=== PATIENT | male | born 1965 | race Caucasian/White ===

== ENCOUNTER 2016-07-13 06:50 | Inpatient (IN) | payer BC, OTHER ==
--- NOTE | 2016-06-22 19:09 | History and Physical ---
History & Physical Date Jun 22, 2016. Chief Complaint left knee pain History of Present Illness Mr Church is a 50 year old male who complains of left knee pain. He presents with pain and decreased rom on the left side. He states that the symptoms have been chronic non-traumatic. The symptoms occur constantly with intermittent worsening. The problem is worse. The pain is described as aching, shooting and discomforting. The symptoms occur continuously. He rates his best pain as 4/10. He rates his worst pain as 10/10. He rates his current pain as 5/10. The symptoms are aggravated by daily activities, movement, walking and work activities. John Paul states that the symptoms are relieved by no specific activity. In addition to left knee pain the patient is also experiencing decreased mobility, pain, pain after activity, night pain and joint pain. Prior NSAIDs include ibuprofen. Patient has had previous therapy. He attended physical therapy. Patient has had knee pain for years. [facility] He has been wearing a brace, taking ibuprofen, and attempted PT without relief. Past Medical/Surgical History Past Medical History 1. High Cholesterol 2. Low Back Pain MEDICATIONS 1. Simvastatin 10mg po daily 2. Ibuprofen 600mg po tid prn Past Surgical History 1. Left knee arthroscopy partial medial meniscectomy 1990s Additional History Hepatic Disease: No Endocrine Disorder: No Kidney Disease: No Hypertension: No Heart Disease: No Bleeding Tendencies: No Infectious Diseases: No Allergies Coded Allergies: No Known Allergies (Unverified , 06/22/16) Physical Examination Skin: warm/dry, no rash Eyes: normal inspection, EOMI, sclerae normal ENT: normal ENT inspection, pharynx normal Head: normocephalic, atraumatic Neck: supple, no adenopathy, trachea midline Respiratory/Chest: lungs clear, normal breath sounds, no respiratory distress Cardiovascular: regular rate, rhythm, no edema, no murmur Abdomen / GI: normal bowel sounds, non tender Addiitonal Comments: Left Knee Exam: Knee ROM L * Active ROM - Flexion: 125 degrees, Extension: 5 degrees, Factors: normal, Description: active pain free range of motion. Passive ROM - Flexion: 135 degrees, Extension: 0 degrees, Factors: normal, Description: passive pain free range of motion. Knee ROM R * Active ROM - Flexion: 135 degrees, Extension: 0 degrees, Factors: normal, Description: active pain free range of motion. Passive ROM - Flexion: 135 degrees, Extension: 0 degrees, Factors: normal, Description: passive pain free range of motion. Strength LE Normal Strength Description - Normal lower extremity: Bilateral. Knee * Inspection - Gait: antalgic. Alignment - Right: neutral, Left: neutral. Ecchymosis - Right: none, Left: negative. Effusion - Right: normal, Left: mild. Swelling - Right: none, Left: mild. Flexibility - Right: normal, Left: normal. Maximum tenderness - Right: non-tender, Left: medial joint line. Patella exam - Crepitation - Right: negative, Left: negative. Patella position - Right: neutral , Left: neutral. Tilt - Right: equal, Left: normal. [facility]'s - medial - Left: Positive. Knee Comments No calf tenderness Knee Normal Inspection - Atrophy - Right: Absent, Left: Absent. Skin - Right: Normal, Left: Normal. Patella exam - Apprehension - Right: Negative, Left: Negative. Q-angle - Right: Normal, Left: Normal. Rita's - Right: Negative, Left: Negative. [facility]'s - lateral - Right: Negative, Left: Negative. [facility]gen 's - medial - Right: Negative. Posterior drawer - Right: Negative, Left: Negative. Reverse pivot-shift - Right: Negative, Left: Negative. Sag sign - Right: Negative, Left: Negative. Anterior drawer - Right: Negative, Left: Negative. Valgus stress - Right: Negative, Left: Negative. Varus stress - Right : Negative, Left: Negative. Extensor lag - Right: Normal, Left: Normal. Neurovascular LE Normal Neurovascular examination including reflexes, sensation , and pulses is within normal limits. Diagnosis Left Knee DJD Xrays reviewed of the left knee showing findings consistent with degenerative joint disease including joint space narrowing, subchondral sclerosis and peripheral osteophyte formation. no acute bony pathology, overall varus alignment. Impression: degenerative joint disease of the left knee with no acute bony pathology noted. Further care discussed with patient and at this point in time has failed conservative measures and would like to proceed with a left total knee replacement. Plan on discharge will be home with home health physical therapy. DVT prophalaxis with TEDs, SCDs and will also place on aspirin 81 mg p.o. b.i.d. for a month postop. Patient will have follow up appointment in our office two weeks post op for staple/suture removal and re-evaluation. Patient otherwise has no other questions or concerns.
[2016-06-24 10:21] VITALS: BMI 36.0
--- NOTE | 2016-06-24 10:47 | PAT Medication Instructions ---
Service Date Jun 24, 2016. Current Home Medication List Acetaminophen (Tylenol), 1,000 MG PO TID PRN for Pain Ibuprofen (Advil), 200-600 MG PO Q4H PRN for Pain Simvastatin (Zocor), 10 MG PO QPM Medication Instructions For Your Scheduled Surgery - Check with surgeon for instructions: Ibuprofen (Advil), 200-600 MG PO Q4H PRN for Pain - Take the following medications the morning of surgery with a sip of water: Acetaminophen (Tylenol), 1,000 MG PO TID PRN for Pain - Take the following medications as scheduled the night before surgery: Simvastatin (Zocor), 10 MG PO QPM Acetaminophen (Tylenol), 1,000 MG PO TID PRN for Pain If you have any questions please call us at [phone] (Sarahy Michael PA-C ) or [phone] or [phone]
--- NOTE | 2016-06-24 11:18 | DIAGNOSTIC IMAGING REPORT ---
CHEST PREADMISSION(PA/LAT) CLINICAL HISTORY: Preoperative chest COMPARISON STUDY: No previous studies for comparison. FINDINGS: The cardiac and mediastinal contours are normal. There is no evidence of focal pulmonary consolidation. There is no evidence of failure. No pleural effusions are visualized.[ IMPRESSION: No active disease in the chest. Electronically signed by: Omer Gaitan M.D. 06/24/2016 11:16 AM Dictated Date/Time: 06/24/2016 11:16 AM
[2016-06-24 11:44] LABS: BASO ABS # 0.08 K/uL (0-0.2); COMPLETE YES; EOS % 2.5 %; HEMATOCRIT 47.9 % (42-52); IG% 0.2 %; LYMPH % 25.2 %; LYMPH ABS # 2.04 K/uL (1.2-3.4); MEAN CELL VOLUME 88.2 fL (80-100); MEAN CORPUSCULAR HEMOGLOBIN 30.2 pg (25-34); MEAN CORPUSCULAR HGB CONC 34.2 g/dl (32-36); MONO % 6.7 %; NEUT % 64.4 %; PLATELET COUNT 252 K/uL (130-400); RED BLOOD COUNT 5.43 M/uL (4.7-6.1); WHITE BLOOD COUNT 8.09 K/uL (4.8-10.8)
[2016-06-24 11:50] LABS: URINE APPEARANCE CLEAR (CLEAR); URINE BILIRUBIN NEG (NEG); URINE COLOR YELLOW; URINE NITRITE NEG (NEG); URINE SPECIFIC GRAVITY 1.007 (1.000-1.030); UROBILINOGEN NEG (NEG)
[2016-06-24 11:56] LABS: PARTIAL THROMBOPLASTIN RATIO 1.1; PROTHROMBIN TIME (PATIENT) 10.9 SECONDS (9.0-12.0)
[2016-06-24 12:01] LABS: MANUAL MICROSCOPIC REQUIRED? NO; REVIEW REQ? NO
[2016-06-24 12:32] LABS: ESTIMATED AVERAGE GLUCOSE 120 mg/dl; HA1C FLAG Normal (Normal)
[2016-06-24 12:34] LABS: BUN/CREATININE RATIO 16.4 (10-20); CALCIUM 9.2 mg/dl (8.5-10.1); CREATININE 0.94 mg/dl (0.60-1.40); POTASSIUM 4.1 mmol/L (3.5-5.1)
[~2016-07-13] VITALS: Ht 172.7 cm; Wt 106.6 kg
[2016-07-13] VITALS (7 sets, daily range): BP systolic 110–150; BP diastolic 73–98; PULSE 81–100; TEMP 36.5–37; O2SAT 93–97; Ht 172.7 cm; Wt 106.6 kg
[2016-07-13] MEDS: TRANEXAMIC ACID INJ 1,000 MG in SODIUM CHLORIDE 0.9% 100ML 100 ML IV SCH ×2 (06:30→09:21)
[~2016-07-13 06:50] MED LIST: ACET-1256 PO; ACETAMINOPHEN 500 MG TAB PO SCH; BUPIVACAINE 0.5 % 5 MG/1 ML PF 10ML VIAL ONE; CEFAZOLIN 3000 MG/65 ML D5W 65 ML IV SCH; CeleBREX 200 MG CAP PO SCH; DEXAMETHASONE 4 MG TAB PO SCH; GABAPENTIN 300 MG CAP PO SCH; IBUP-1277 PO; LACTATED RINGER'S 1000ML 1,000 ML IV SCH; LACTATED RINGER'S 1000ML IV SCH; LACTATED RINGER'S 500 ML IV SCH; METOCLOPRAMIDE HCL 10 MG TAB PO SCH; ROPIVACAINE 5MG/ML 30 ML 150 MG, BUPIVACAINE/EPINEPHR 0.5% MPF 30 ML, KETOROLAC TROMETH... INFIL SCH; SIMV10TA2 PO
--- NOTE | 2016-07-13 07:01 | History & Physical Bridge Note ---
H&P Re-Evaluation Bridge Note: I have examined the patient, reviewed the History & Physical and in the interval since the performance of the History & Physical I have noted the following changes of clinical significance: No changes noted
[2016-07-13] MEDS ORDERED: MIDAZOLAM HCL 1 MG/ML 2ML VIAL ONE (08:38)
[2016-07-13] MEDS ORDERED: BACITRACIN 50000 UNIT VIAL ONE (09:19)
[2016-07-13] MEDS ORDERED: ORTHO JOINT ANESTHETIC ONE (09:19)
[2016-07-13] MEDS ORDERED: POVIDONE-IODINE OP SOLN 30 ML BTL ONE (09:19)
[2016-07-13] MEDS ORDERED: FENTANYL CITRATE INJ 50 MCG/1 ML 2 ML VIAL ONE (09:42)
[2016-07-13] MEDS ORDERED: ONDANSETRON INJ 2 MG/ML 2 ML VIAL IV PRN ×2 (10:15→11:30)
[2016-07-13] MEDS ORDERED: FENTANYL CITRATE INJ 50 MCG/1 ML 2 ML VIAL IV PRN (10:15)
[2016-07-13] MEDS ORDERED: ATROPINE SULFATE 0.1 MG/ML 5ML SYR IV PRN (10:15)
[2016-07-13] MEDS ORDERED: EpHEDrine SULFATE INJ 50 MG/ML AMP IV PRN (10:15)
[2016-07-13] MEDS ORDERED: HYDROmorphone INJ 0.5 MG/0.5 ML SYR IV PRN (10:15)
[2016-07-13] MEDS ORDERED: PHENYLEPHRINE 100MCG/ML 5ML SYR ONE (10:40)
[2016-07-13] MEDS ORDERED: PROPOFOL IV EMULSION 10 MG/ML 20 ML VIAL IV ONE (10:40)
--- NOTE | 2016-07-13 10:44 | [facility] Post Operative Brief Note ---
Immediate Operative Summary Operative Date July 13, 2016. Pre-Operative Diagnosis Left knee degenerative joint disease Post-Operative Diagnosis Left knee degenerative joint disease Procedure(s) Performed Left Total Knee Arthroplasty Surgeon Dr. Martell Vaz Hospice Chaplain Surgeon(s) Rajesh Lundy PA-C Estimated Blood Loss 5mL Findings severe djd lt knee Specimens Specimen A.Left knee bone and tissue Complication(s) None Disposition Recovery Room / PACU
[2016-07-13] MEDS ORDERED: DEXAMETHASONE SOD INJ 4 MG/ML VIAL ONE (10:52)
[2016-07-13] MEDS ORDERED: ONDANSETRON INJ 2 MG/ML 2 ML VIAL ONE (10:52)
--- NOTE | 2016-07-13 10:57 | OPERATIVE REPORT ---
DATE OF OPERATION: 07/13/2016 PREOPERATIVE DIAGNOSIS: Severe end-stage degenerative joint disease, left knee. POSTOPERATIVE DIAGNOSIS: Severe end-stage degenerative joint disease, left knee. PROCEDURE: Left total knee arthroplasty utilizing Javier \T\ Nephew Journey II patient matched total knee arthroplasty size 6 femur, 6 tibia, 10 poly, 32 oval patella. SURGEON: Dr. Vaz. INFANT AND TODDLER TEACHER: Rajesh Lundy, who was necessary for prepping, draping, retraction, wound closure of deep fascia, subQ and skin and was necessary for the case. COMPLICATIONS: None. ESTIMATED BLOOD LOSS: 5 mL. TOURNIQUET TIME: 45 minutes. HISTORY OF PRESENT ILLNESS: The patient presents as a very pleasant 50-year-old white male being seen and evaluated with complaints of ongoing pain attributable to his left knee. He has failed attempts at conservative management including physical therapy, anti-inflammatories, relative rest, activity modification and presents for total knee arthroplasty after failing the above conservative management. After thorough discussion regarding treatment options, the patient has elected to proceed forward with total knee arthroplasty understanding the risks and complications. OPERATION AND FINDINGS: PROCEDURE: The patient was properly prepped and draped in supine position for total knee arthroplasty after identifying the appropriate surgical site. An anterior midline incision was made through the subcutaneous tissues down to the region of the extensor mechanism. A medial parapatellar incision was subsequently made. Meticulous hemostasis was obtained and performed at all times. The patella having been subluxed lateralward, medial and lateral meniscal remnants were excised. The patellar cut was then initially made and was sized to the appropriate size. After subluxing the tibia forward the appropriate meniscal fragments having been removed the distal femur was then cut first utilizing a Javier and Nephew block. The distal femoral cuts and chamfer cuts were all made under direct visualization and the proximal tibial osteotomy cut was also made utilizing Javier and Nephew blocks and checked with an extramedullary guide. The appropriate trial components on the femur and tibia were placed. Appropriate trial spacers were used to check flexion and extension gaps. With flexion and extension gaps being equal, the components were then subsequently after thorough irrigation and debridement lavage components were then subsequently cemented in the following order: femur, tibia and patella. Exparel was used for intraoperative anesthesia, the medial parapatellar incision was closed utilizing #1 Vicryl, subQ was closed with 2-0 Vicryl, skin was closed with skin clips. A sterile compression dressing was placed. The patient was taken to recovery room in stable condition. Due to the complex nature of the procedure, the entire surgery was performed with the operational assistance of Rajesh Lundy PA-C. The assistant winemaker, under direct supervision, was involved in the actual performance of all aspects of the surgical procedure including hemostasis, tissue retraction and incision, instrument management, patient positioning, and wound closure. I attest to the content of the Intraoperative Record and any orders documented therein. Any exceptio ns are noted below.
[2016-07-13] MEDS ORDERED: SOD PHOSPHATE/SOD BIPHOSPHATE ENEMA 132 ML BTL PR PRN (11:30)
[2016-07-13] MEDS ORDERED: MAGNESIUM HYDROXIDE SUSP 30 ML UDC PO PRN (11:30)
[2016-07-13] MEDS ORDERED: ZOLPIDEM TARTRATE 5 MG TAB PO PRN (11:30)
[2016-07-13] MEDS ORDERED: ALUMINUM/MAGNESIUM/SIMETH (MAALOX MAX) 30 ML UDC PO PRN (11:30)
[2016-07-13] MEDS ORDERED: BISACODYL 10 MG SUPP PR PRN (11:30)
[2016-07-13] MEDS ORDERED: METOCLOPRAMIDE HCL INJ 5 MG/ML 2 ML VIAL IV PRN (11:30)
--- NOTE | 2016-07-13 12:03 | DIAGNOSTIC IMAGING REPORT ---
LEFT KNEE 1 OR 2 VIEWS ROUTINE CLINICAL HISTORY: AP/LATERAL IN PACU LEFT KNEE joint replacement COMPARISON: None. DISCUSSION: Anatomic alignment status post total left knee arthroplasty. Good contact between prosthetic and underlying bone. Surgical drains are in position. Expected soft tissue postoperative change. IMPRESSION: Anatomic alignment status post total left knee replacement Electronically signed by: Rajesh Mac M.D. 07/13/2016 12:02 PM Dictated Date/Time: 07/13/2016 12:01 PM
--- NOTE | 2016-07-13 12:29 | Anesthesiology Progress Note ---
Anesthesia Post Op Note Date & Time July 13, 2016 at 12:29 Vital Signs Pain Intensity: 0 Vital Signs Past 12 Hours Date Time Temp Pulse Resp B/P Pulse Ox O2 Delivery O2 Flow Rate FiO2 07/13/16 11:28 36.3 85 18 89/72 96 Mask 10 07/13/16 07:38 36.5 81 16 150/98 97 Room Air Notes Mental Status: alert / awake / arousable, participated in evaluation Pt Amnestic to Procedure: Yes Nausea / Vomiting: adequately controlled Pain: adequately controlled Airway Patency, RR, SpO2: stable & adequate BP & HR: stable & adequate Hydration State: stable & adequate Neuraxial Anesthesia: was administered, sensory block is resolving Anesthetic Complications: no major complications apparent
[2016-07-13] MEDS ORDERED: MoRPHine SULFATE 4 MG/ML 1 ML CARP\\VIAL IV PRN (14:00)
[2016-07-13] MEDS ORDERED: MoRPHine SULFATE 10 MG/ML CARP/VIAL IV PRN (14:00)
[2016-07-13] MEDS: D5W AND 1/2NSS + 20MEQ KCL 1,000 ML IV SCH (14:21)
[2016-07-13] MEDS: ACETAMINOPHEN 500 MG TAB PO SCH ×2 (14:22→22:28)
[2016-07-13] MEDS: KETOROLAC TROMETHAMINE 30 MG/ML VIAL IV. SCH ×2 (15:39→22:27)
[2016-07-13] MEDS: OXYCODONE HCL IR 5 MG TAB (IMMEDIATE RELEASE) PO PRN (17:05)
[2016-07-13] MEDS: MoRPHine SULFATE 2 MG/ML CARP IV PRN ×2 (19:09→19:48)
[2016-07-13] MEDS: CEFAZOLIN IV 2,000 MG in DEXTROSE 5% 50ML 50 ML IV SCH (20:51)
[2016-07-13] MEDS: SENNA 8.6 MG TAB PO SCH (20:51)
[2016-07-13] MEDS: DOCUSATE SODIUM 100 MG CAP PO SCH (20:51)
[2016-07-13] MEDS: ASPIRIN 81 MG ECTAB PO SCH (20:51)
[2016-07-13] MEDS: SIMVASTATIN 10 MG TAB PO SCH (20:51)
[2016-07-13] MEDS: OXYCODONE HCL 10 MG TABCR (OXYCONTIN) PO SCH (20:51)
[2016-07-14] VITALS (9 sets, daily range): BP systolic 109–147; BP diastolic 71–92; PULSE 75–91; TEMP 36.4–36.9; O2SAT 93–97
[2016-07-14] MEDS: D5W AND 1/2NSS + 20MEQ KCL 1,000 ML IV SCH ×2 (00:48→10:05)
[2016-07-14] MEDS: CEFAZOLIN IV 2,000 MG in DEXTROSE 5% 50ML 50 ML IV SCH (04:06)
[2016-07-14] MEDS: KETOROLAC TROMETHAMINE 30 MG/ML VIAL IV. SCH ×2 (04:06→10:05)
[2016-07-14] MEDS: ACETAMINOPHEN 500 MG TAB PO SCH ×3 (06:11→22:01)
[2016-07-14 07:00] LABS: HEMATOCRIT 41.8 % (42-52); MEAN CELL VOLUME 87.3 fL (80-100); MEAN CORPUSCULAR HEMOGLOBIN 29.6 pg (25-34); MEAN PLATELET VOLUME 10.2 fL (7.4-10.4); PLATELET COUNT 285 K/uL (130-400); RED BLOOD COUNT 4.79 M/uL (4.7-6.1); WHITE BLOOD COUNT 17.99 K/uL (4.8-10.8)
[2016-07-14 07:36] LABS: BUN/CREATININE RATIO 19.7 (10-20); CALCIUM 8.8 mg/dl (8.5-10.1); CREATININE 0.99 mg/dl (0.60-1.40); POTASSIUM 4.3 mmol/L (3.5-5.1)
[2016-07-14] MEDS: OXYCODONE HCL IR 5 MG TAB (IMMEDIATE RELEASE) PO PRN ×3 (07:43→20:12)
--- NOTE | 2016-07-14 08:22 | Anesthesiology Progress Note ---
Anesthesia Post Op Note Date & Time July 14, 2016 at 08:23 Vital Signs Pain Intensity: 7.0 Vital Signs Past 12 Hours Date Time Temp Pulse Resp B/P Pulse Ox O2 Delivery O2 Flow Rate FiO2 07/14/16 07:20 36.9 91 18 143/85 96 Room Air 07/14/16 03:06 36.4 80 16 116/75 94 Room Air 07/14/16 00:54 Room Air 07/14/16 00:06 36.4 80 18 109/71 96 Room Air Notes Mental Status: alert / awake / arousable, participated in evaluation Pt Amnestic to Procedure: Yes Nausea / Vomiting: adequately controlled Pain: adequately controlled Airway Patency, RR, SpO2: stable & adequate BP & HR: stable & adequate Hydration State: stable & adequate Neuraxial Anesthesia: sensory block resolved Anesthetic Complications: no major complications apparent
--- NOTE | 2016-07-14 08:55 | Orthopedic Progress Note ---
Orthopedic Progress Note Date of Service July 14, 2016. Subjective Reports: complaints (pain in the knee this AM), feeling well, light headedness, Denies: SOB, calf pain, chest pain, nausea / vomiting Additional Notes: Pt just returned from the [place]. States he's having moderate pain this AM (just received pain meds). Some difficulty in doing SLR. Mild LH when first up but was better with time. No other complaints. Objective calves soft nontender, N/V intact, dressing C/D/I, A&O x3, toes mobile, hemovac drainage (250ml latest shift; ) Firing quad muscles. Good DF/PF of foot. Date Time Temp Pulse Resp B/P Pulse Ox O2 Delivery O2 Flow Rate FiO2 07/14/16 07:20 36.9 91 18 143/85 96 Room Air 07/14/16 03:06 36.4 80 16 116/75 94 Room Air 07/14/16 00:54 Room Air 07/14/16 00:06 36.4 80 18 109/71 96 Room Air 07/13/16 19:47 36.9 100 16 114/73 96 Room Air 07/13/16 16:26 37.0 88 17 112/73 95 Room Air 07/13/16 15:26 37.0 91 17 118/76 97 Room Air 07/13/16 14:20 36.6 98 18 110/76 93 Room Air 07/13/16 13:47 36.6 92 17 113/74 95 Nasal Cannula 2.0 07/13/16 13:20 36.9 91 18 125/84 94 Nasal Cannula 3.0 07/13/16 13:20 94 Nasal Cannula 3.0 07/13/16 13:20 94 Nasal Cannula 3.0 07/13/16 13:05 114/67 07/13/16 13:03 88 14 07/13/16 13:03 89 14 95 07/13/16 13:00 107/72 07/13/16 12:58 87 20 07/13/16 12:58 86 20 96 07/13/16 12:55 92/67 07/13/16 12:53 88 19 07/13/16 12:53 89 19 92 07/13/16 12:50 96/69 07/13/16 12:48 87 15 94 07/13/16 12:48 87 15 07/13/16 12:45 100/68 07/13/16 12:43 87 18 07/13/16 12:43 87 18 94 07/13/16 12:40 109/76 07/13/16 12:38 87 16 07/13/16 12:38 87 16 95 07/13/16 12:35 105/73 07/13/16 12:33 89 18 07/13/16 12:33 88 18 92 07/13/16 12:30 108/65 07/13/16 12:28 86 20 07/13/16 12:28 86 20 94 07/13/16 12:25 114/74 07/13/16 12:23 85 15 91 07/13/16 12:23 85 15 07/13/16 12:20 118/82 07/13/16 12:18 87 14 07/13/16 12:18 87 14 92 07/13/16 12:15 120/78 07/13/16 12:13 86 12 07/13/16 12:13 85 12 94 07/13/16 12:10 124/82 07/13/16 12:08 88 16 94 07/13/16 12:08 88 16 07/13/16 12:05 127/84 07/13/16 12:03 88 20 07/13/16 12:03 88 20 93 07/13/16 12:00 135/92 07/13/16 11:58 87 15 07/13/16 11:58 88 15 93 07/13/16 11:55 121/82 07/13/16 11:53 85 16 07/13/16 11:53 85 16 96 07/13/16 11:50 104/73 07/13/16 11:48 84 15 07/13/16 11:48 84 15 96 07/13/16 11:45 106/79 07/13/16 11:43 84 19 07/13/16 11:43 85 19 95 07/13/16 11:40 121/82 07/13/16 11:38 84 15 96 07/13/16 11:38 84 15 07/13/16 11:35 124/79 07/13/16 11:33 86 17 07/13/16 11:33 86 17 97 07/13/16 11:32 125/78 5/9/17 11:30 96/76 07/13/16 11:29 89/72 07/13/16 11:28 87 15 07/13/16 11:28 90 15 96 07/13/16 11:28 36.3 85 18 89/72 96 Mask 10 Laboratory Results 24 Hours: Test 07/14/16 06:45 Hematocrit 41.8 % Hemoglobin 14.2 g/dL Prothromb Time International Ratio 1.0 Prothrombin Time 11.0 SECONDS Assessment & Plan Assessment: POD 1 s/p Left TKA Plan: PT/OT Quad weakness due to surgery and discussed with patient. Inhouse Planning Pain Management: Celebrex, Toradol, Oxycontin, Morphine, PO Tylenol, Oxy IR DVT Prophylaxis: TEDs, SCDs, ASA Discharge Planning Discharge Planning: home with oppt Pain Management: Celebrex, Oxycontin, PO Tylenol, Oxy IR DVT Prophylaxis: TEDs, ASA Therapy: Physical Therapy
[2016-07-14] MEDS: DOCUSATE SODIUM 100 MG CAP PO SCH ×2 (09:00→20:30)
[2016-07-14] MEDS: PANTOprazole SOD 40 MG TAB PO SCH (09:02)
[2016-07-14] MEDS: MULTIVITAMIN TAB PO SCH (09:02)
[2016-07-14] MEDS: ASPIRIN 81 MG ECTAB PO SCH ×2 (09:02→20:30)
[2016-07-14] MEDS: OXYCODONE HCL 10 MG TABCR (OXYCONTIN) PO SCH ×2 (09:04→20:31)
[2016-07-14] MEDS ORDERED: NURSING DECISION MEDICATION ORDER SCH (14:15)
[2016-07-14] MEDS: NICOTINE 21 MG/24 HR TDSY TD SCH (15:56)
--- NOTE | 2016-07-14 17:29 | Discharge Instructions ---
Discharge Instructions Date of Service July 14, 2016. Admission Reason for Admission: Left Knee Osteoarthritis Discharge Discharge Diagnosis / Problem: Left Total Knee Replacement Discharge Goals Goal(s): Decrease discomfort, Improve function, Increase independence Activity Recommendations Activity Limitations: as noted below Weightbearing Status: Left weightbearing (as tolerated) . Instructions / Follow-Up Instructions / Follow-Up ACTIVITY RECOMMENDATIONS: SELF CARE INSTRUCTIONS AFTER TOTAL KNEE REPLACEMENT A. You may need to continue a physical therapy program after discharge from the hospital. There are several options available to you. Your doctor will assist you in selecting the best one for you. 1. An out-patient facility 2 to 3 times a week for therapy or home therapy. 2. Continue working on all exercises taught to you in the hospital. Your goals should be to increase bending of your knee to 90 degrees and beyond and to fully straighten your knee. B. You may progress at your own pace from walking with a walker or crutches to a cane; then to no assistive devices. C. Make walking a part of your daily routine. Be up as much as comfortable with rest periods throughout the day. Rest with leg elevation is very important. Use the ice wrap frequently for the first 3-4 weeks. D. There are no restrictions on activities. You may ride in a car, shop, participate in news photographer and all social activities. E. Wear the long elastic stockings (DINORAH hose) 20 hours a day for 2 weeks after surgery. They can be removed several times a day for laundering and for a bath. F. You may shower, no tub baths until cleared by your doctor. SPECIAL CARE INSTRUCTIONS: VERY IMPORTANT TO READ AND REVIEW A. There are a few signs you need to watch for after you are home. Call [facility] [place] if you notice any of the followin. Increased severe knee pain. Some pain is expected especially when you exercise. 2. Increased swelling in your leg or knee; pain or swelling of the calf muscle in either lower leg. 3. Any fluid drainage from the incision. 4. Shortness of breath or chest pain. B. Please call [facility] at if you have any concerns or questions about your operation or recovery. The doctor or his nurse will return your call promptly. C. You must take antibiotics before dental work, bladder, bowel or other surgery. Your doctor will provide you with a permanent care to carry describing this precaution. IMPORTANT: * REMEMBER TO TAKE ASPIRIN, 81 MG, TWICE DAILY FOR 4 WEEKS UNLESS OTHERWISE DIRECTED. THIS IS YOUR BLOOD THINNER. * HIGH RISK PATIENTS MAY BE PRESCRIBED A STRONGER BLOOD THINNER. THIS WILL BE PROVIDED AT DISCHARGE. * CALL IF INCREASED PAIN, REDNESS, DRAINAGE OR FEVER GREATER THAT 101. * WEAR DINORAH HOSE 20 HOURS PER DAY FOR 2 WEEKS. * DERMABOND Prineo- This is a mesh tape dressing that is covered with glue. It should remain in place until the incision is properly healed, usually 10-14 days. This dressing is designed to naturally slough off. You may trim the excess mesh tape as it peels off. Incision may be briefly wet in a shower. Dry immediately by blotting with a clean, dry towel. Do not bath or swim until instructed by your doctor. Do not scratch, rub, or pick at the dressing. Do not apply any topical ointments or lotions until dressing is completely removed and/or instructed by your doctor. There may be a small piece of suture material at one end of your incision. Do not pull or trim this. If it is bothersome or catching on clothing, you may cover it with a band-aid. FOLLOW UP VISIT: If appointment is not already scheduled: Please call [facility] [place] to make a follow-up appointment for 2 weeks after your surgery at . Current Hospital Diet Patient's current hospital diet: Regular Diet Discharge Diet Recommended Diet: Regular Diet Procedures Procedures Performed: Left Total Knee Arthroplasty Pending Studies Studies pending at discharge: no Laboratory Results Hemoglobin A1c Test 06/24/16 11:01 Range/Units Estimated Average Glucose 120 mg/dl Hemoglobin A1c 5.8 H 4.5-5.6 % Medical Emergencies . Who to Call and When: Medical Emergencies: If at any time you feel your situation is an emergency, please call 911 immediately. . Non-Emergent Contact Non-Emergency issues call your: Primary Care Provider, Surgeon . "Provider Documentation" section prepared by Rajesh Lundy. . VTE Core Measure Inpt VTE Proph given/why not?: Other Anticoagulation (ASA 81mg po bid x 1 month ), T.E.D. Stockings, SCD's [place] Drug Monitoring Program Search Results: patient reviewed within database, no issues identified
[2016-07-14] MEDS: SENNA 8.6 MG TAB PO SCH (20:30)
[2016-07-14] MEDS: CeleBREX 200 MG CAP PO SCH (20:31)
[2016-07-14] MEDS: SIMVASTATIN 10 MG TAB PO SCH (20:31)
[2016-07-15] MEDS: ACETAMINOPHEN 500 MG TAB PO SCH (06:13)
[2016-07-15] MEDS: OXYCODONE HCL IR 5 MG TAB (IMMEDIATE RELEASE) PO PRN ×2 (06:14→10:22)
--- NOTE | 2016-07-15 07:26 | Orthopedic Progress Note ---
Orthopedic Progress Note Date of Service July 15, 2016. Subjective Post OP Day: 2 Reports: feeling well, pain controlled w PO medications, Denies: SOB, calf pain , chest pain, complaints, light headedness, nausea / vomiting Objective calves soft nontender, N/V intact, capillary refill less than 2 sec., incision C /D/I, A&O x3, toes mobile Date Time Temp Pulse Resp B/P Pulse Ox O2 Delivery O2 Flow Rate FiO2 07/15/16 00:05 Room Air 07/14/16 22:50 36.4 75 16 109/75 93 Room Air 07/14/16 19:43 36.8 85 16 129/86 97 Room Air 07/14/16 16:13 36.8 87 18 147/92 96 Room Air 07/14/16 15:15 96 Room Air 07/14/16 12:40 36.4 79 18 138/87 07/14/16 07:30 Room Air Assessment & Plan Assessment: POD 2 s/p Left TKA Plan: PT/OT DVT proph with steve/scd/asa plan for d/c home later today after PT Discharge Planning Discharge Planning: home with oppt Pain Management: Celebrex, Oxycontin, PO Tylenol, Oxy IR DVT Prophylaxis: TEDs, ASA Therapy: Physical Therapy
[2016-07-15 07:28] VITALS: BP 126/85; PULSE 80; TEMP 36.5; O2SAT 96
[2016-07-15] MEDS ORDERED: RXC5 PO (07:29)
[2016-07-15] MEDS ORDERED: ASPEC81 PO (07:29)
[2016-07-15] MEDS ORDERED: CLB200 PO (07:29)
[2016-07-15] MEDS ORDERED: ACET-1138 PO (07:29)
[2016-07-15] MEDS ORDERED: OXYSR10 PO (07:29)
[2016-07-15] MEDS ORDERED: ONDA8TAB6 PO (07:29)
--- NOTE | 2016-07-15 07:31 | Discharge Summary ---
Orthopedic Discharge Summary Admission Date/Reason July 13, 2016 at 08:04 Left Knee Osteoarthritis. Discharge Date/Disposition July 15, 2016 Home Diagnosis Principal Diagnosis: left knee osteoarthritis Procedure(s) Performed Left total knee arthroplasty utilizing Javier \[facility]\ [facility] patient matched total knee arthroplasty size 6 femur, 6 tibia, 10 poly, 32 oval patella. Consultations NONE Medication Reconciliation New Medications: Ondansetron Hcl (Zofran) 8 Mg Tab 8 MG PO Q8 PRN for Nausea, #20 TAB Acetaminophen (Tylenol Extra Strength) 500 Mg Tab 1000 MG PO Q8H, #126 TAB Aspirin (Aspirin EC Low Dose) 81 Mg Ectab 81 MG PO BID for 30 Days, #60 TAB Celecoxib (Celebrex) 200 Mg Cap 200 MG PO BID, #60 CAP Oxycodone HCl (Oxycontin) 10 Mg Tabcr 10 MG PO Q12, #20 Oxycodone HCl (Oxycodone HCl) 5 Mg Tab 5-10 MG PO Q4H PRN for Pain, #60 TAB Continued Medications: Simvastatin (Zocor) 10 Mg Tab 10 MG PO QPM, TAB Discontinued Medications: Acetaminophen (Tylenol) 500 Mg Tab 1000 MG PO TID PRN for Pain, TAB Ibuprofen (Advil) 200 Mg Tab 200-600 MG PO Q4H PRN for Pain, TAB STOP 06/22/16 Admission Physical Exam As per Admitting History & Physical. Hospital Course Patient was a same day admission after undergoing a successful left TKA. he tolerated the procedure well. Post-operatively, his activity was progressed and well tolerated. Please refer to daily progress notes and PT notes for complete details. After exam on 07/15/16, patient felt to be stable for discharge home with OPPT. Patient will f/u in the office in 2 weeks for further evaluation including x-rays and incision check, sooner if having any issues or concerns. Below are pertinent labs/studies during their hospital stay: Last Resulted CBC 07/14/16 06:45 Last Resulted BMP 07/14/16 06:45 Last Vital Signs Documentation Date Time Temp Pulse Resp B/P Pulse Ox O2 Delivery O2 Flow Rate FiO2 07/15/16 00:05 Room Air 07/14/16 22:50 36.4 75 16 109/75 93 07/13/16 13:47 2.0 Discharge Instructions ACTIVITY RECOMMENDATIONS: SELF CARE INSTRUCTIONS AFTER TOTAL KNEE REPLACEMENT A. You may need to continue a physical therapy program after discharge from the hospital. There are several options available to you. Your doctor will assist you in selecting the best one for you. 1. An out-patient facility 2 to 3 times a week for therapy or home therapy. 2. Continue working on all exercises taught to you in the hospital. Your goals should be to increase bending of your knee to 90 degrees and beyond and to fully straighten your knee. B. You may progress at your own pace from walking with a walker or crutches to a cane; then to no assistive devices. C. Make walking a part of your daily routine. Be up as much as comfortable with rest periods throughout the day. Rest with leg elevation is very important. Use the ice wrap frequently for the first 3-4 weeks. D. There are no restrictions on activities. You may ride in a car, shop, participate in kiln door builder and all social activities. E. Wear the long elastic stockings (DINORAH hose) 20 hours a day for 2 weeks after surgery. They can be removed several times a day for laundering and for a bath. F. You may shower, no tub baths until cleared by your doctor. SPECIAL CARE INSTRUCTIONS: VERY IMPORTANT TO READ AND REVIEW A. There are a few signs you need to watch for after you are home. Call [facility] if you notice any of the followin. Increased severe knee pain. Some pain is expected especially when you exercise. 2. Increased swelling in your leg or knee; pain or swelling of the calf muscle in either lower leg. 3. Any fluid drainage from the incision. 4. Shortness of breath or chest pain. B. Please call [facility] at if you have any concerns or questions about your operation or recovery. The doctor or his nurse will return your call promptly. C. You must take antibiotics before dental work, bladder, bowel or other surgery. Your doctor will provide you with a permanent care to carry describing this precaution. IMPORTANT: * REMEMBER TO TAKE ASPIRIN, 81 MG, TWICE DAILY FOR 4 WEEKS UNLESS OTHERWISE DIRECTED. THIS IS YOUR BLOOD THINNER. * HIGH RISK PATIENTS MAY BE PRESCRIBED A STRONGER BLOOD THINNER. THIS WILL BE PROVIDED AT DISCHARGE. * CALL IF INCREASED PAIN, REDNESS, DRAINAGE OR FEVER GREATER THAT 101. * WEAR DINORAH HOSE 20 HOURS PER DAY FOR 2 WEEKS. * DERMABOND Prineo- This is a mesh tape dressing that is covered with glue. It should remain in place until the incision is properly healed, usually 10-14 days. This dressing is designed to naturally slough off. You may trim the excess mesh tape as it peels off. Incision may be briefly wet in a shower. Dry immediately by blotting with a clean, dry towel. Do not bath or swim until instructed by your doctor. Do not scratch, rub, or pick at the dressing. Do not apply any topical ointments or lotions until dressing is completely removed and/or instructed by your doctor. There may be a small piece of suture material at one end of your incision. Do not pull or trim this. If it is bothersome or catching on clothing, you may cover it with a band-aid. FOLLOW UP VISIT: If appointment is not already scheduled: Please call [facility] to make a follow-up appointment for 2 weeks after your surgery at .
[2016-07-15] MEDS: ASPIRIN 81 MG ECTAB PO SCH (08:55)
[2016-07-15] MEDS: DOCUSATE SODIUM 100 MG CAP PO SCH (08:55)
[2016-07-15] MEDS: PANTOprazole SOD 40 MG TAB PO SCH (08:55)
[2016-07-15] MEDS: CeleBREX 200 MG CAP PO SCH (08:56)
[2016-07-15] MEDS: MULTIVITAMIN TAB PO SCH (08:56)
[2016-07-15] MEDS: OXYCODONE HCL 10 MG TABCR (OXYCONTIN) PO SCH (08:57)
[2016-07-15] MEDS: NICOTINE 21 MG/24 HR TDSY TD SCH (08:58)
[2016-07-15 10:26] VITALS: BP 126/85; PULSE 80; TEMP 36.5; O2SAT 96
== END 2016-07-15 10:50 | disposition home or self-care (01) | DRG 470 ==
LOC: ENRESERVTM → ENRESERVDT → C.ACU 06:50 → C.3E 08:04
PROVIDERS: ADMIT Orthopaedic Surgery; ATTEND Orthopaedic Surgery
PROC: 0SRD0J9 Replacement of Left Knee Joint with Synthetic Substitute, Cemented, Open Approach (ICD-10-PCS; principal; 2016-07-13 09:15)
DX: M17.12 Unilateral primary osteoarthritis, left knee (principal); E78.00 Pure hypercholesterolemia, unspecified; M54.5 Low back pain; F17.210 Nicotine dependence, cigarettes, uncomplicated; E66.9 Obesity, unspecified; Z68.35 Body mass index [BMI] 35.0-35.9, adult; Z79.899 Other long term (current) drug therapy; Z79.1 Long term (current) use of non-steroidal anti-inflammatories (NSAID)